=== PATIENT | male | born 1930 | race Caucasian/White ===

== ENCOUNTER 2017-04-14 12:41 | Inpatient (IN) | payer MEDICARE ==
[~2017-04-14] VITALS: Ht 188 cm; Wt 70.3 kg
--- NOTE | 2017-04-14 12:48 | ER Report ---
History and Physical Time Seen By MD: 12:48 HPI/ROS CHIEF COMPLAINT: Not feeling well HISTORY OF PRESENT ILLNESS: 86-year-old male patient presents to emergency room with complaint of not feeling well. Patient states he is not felt well for the past or 3 days. He states that he's not had any more shortness of breath than normal. He states that he was seen at the urgent care, they checked several labs and then referred him to the emergency room. They're concerned that he has had a cough and sore throat. They were concerned that he may be developing pneumonia. He states he is not had any fevers, chills, nausea, vomiting or diarrhea. He is not having changes in his medications. The labs that were done at the urgent care he did have an elevated d-dimer of 1.59, elevated B natruretic peptide of 611. Patient denies having any chest pain. REVIEW OF SYSTEMS: Respiratory: As noted above Cardiovascular: No chest pain, no palpitations. Gastrointestinal: No vomiting, no abdominal pain. Musculoskeletal: No back pain. Allergies: Coded Allergies: No Known Drug Allergies (Unverified , 04/14/17) Home Meds Reported Medications Amiodarone Hcl (AMIODARONE HCL) 200 Mg Tablet, 200 MG PO QHS 04/14/17 Apixaban (ELIQUIS) 2.5 Mg Tablet, 2.5 MG PO BID 04/14/17 Past Medical/Surgical History Patient has a past medical history of irregular heartbeat, congestive heart failure, urinary frequency. Patient has surgical history of a clip for a leaky valve. Reviewed Nurses Notes: Yes Constitutional Vital Sign - Last 24 Hours 04/14/17 04/14/17 04/14/17 04/14/17 12:41 12:47 12:49 12:56 Temp 97.8 Pulse ??? 116 107 Resp 20 B/P (MAP) 109/79 109/79 (89) Pulse Ox 95 96 O2 Delivery Room Air 04/14/17 04/14/17 04/14/17 04/14/17 13:00 13:11 13:26 13:30 Pulse 101 104 B/P (MAP) 109/76 (87) 78/44 (55) Pulse Ox 95 88 04/14/17 04/14/17 04/14/17 04/14/17 13:38 13:41 13:58 14:00 Pulse 95 88 B/P (MAP) 94/70 (78) 94/68 (77) Pulse Ox 94 95 04/14/17 04/14/17 04/14/17 04/14/17 14:05 14:10 14:15 14:20 Pulse 84 83 83 81 Resp 82 22 11 Pulse Ox 96 95 96 04/14/17 04/14/17 04/14/17 04/14/17 14:25 14:30 14:35 14:45 Pulse 67 74 66 Resp 54 25 0 B/P (MAP) 125/70 (88) Pulse Ox 96 96 97 04/14/17 04/14/17 04/14/17 04/14/17 14:55 15:00 15:15 15:30 Pulse 62 62 66 Resp 54 0 22 B/P (MAP) 111/69 (83) 119/75 (90) Pulse Ox 96 97 96 04/14/17 04/14/17 04/14/17 04/14/17 15:45 16:00 16:15 16:30 Pulse 62 64 71 Resp 17 14 55 B/P (MAP) 114/76 (89) 108/78 (88) Pulse Ox 97 96 95 04/14/17 04/14/17 04/14/17 04/14/17 16:45 16:50 17:00 17:05 Pulse 68 74 67 Resp 38 17 12 B/P (MAP) 123/90 (101) Pulse Ox 96 96 96 04/14/17 04/14/17 04/14/17 04/14/17 17:20 17:30 17:35 17:50 Pulse 64 62 64 Resp 24 46 27 B/P (MAP) 125/79 (94) Pulse Ox 96 96 95 04/14/17 18:00 B/P (MAP) 127/90 (102) Intake and Output 04/14/17 04/14/17 04/15/17 15:00 23:00 07:00 Intake Total 500 ml Balance 500 ml Physical Exam General Appearance: The patient is alert, has no immediate need for airway protection and no current signs of toxicity. Respiratory: Chest is non tender, lungs are clear to auscultation. Cardiac: regular rate and rhythm Gastrointestinal: Abdomen is soft and non tender, no masses, bowel sounds normal. Musculoskeletal: Neck: Neck is supple and non tender. Extremities have full range of motion and are non tender. Skin: No rashes or lesions. DIFFERENTIAL DIAGNOSIS: After history and physical exam differential diagnosis was considered for pulmonary embolism, NSTEMI, urinary tract infection, and influenza. Medical Decision Making Data Points Laboratory Hematology Test 04/14/17 13:07 04/14/17 13:17 04/14/17 14:34 Influenza Virus Type A (PCR) Positive (NEGATIVE) Influenza Virus Type B (PCR) Negative (NEGATIVE) Urine Color [place] Urine Clarity Cloudy Urine pH 5.0 pH (4.8-9.5) Urine Specific [place] 1.020 Urine Protein 30 mg/dL (NEGATIVE) Urine Glucose (UA) Negative mg/dL (NEGATIVE) Urine Ketones Trace mg/dL (NEGATIVE) Urine Blood Negative (NEGATIVE) Urine Nitrite Negative (NEGATIVE) Urine Bilirubin Negative (NEGATIVE) Urine Urobilinogen 2.0 mg/dL (0.2-1.9) Urine Leukocyte Esterase Negative (NEGATIVE) Urine RBC 1 /HPF (0-2/HPF) Urine WBC 7 /HPF (0-5/HPF) Urine Squamous Epithelial Cells Many /LPF (</=FEW) Urine Bacteria Few /HPF (NONE-FEW) Urine Hyaline Casts Many /LPF (NONE-FEW) Urine Mucus Few /HPF (NONE-FEW) Troponin I 0.047 ng/ml Chemistry Test 04/14/17 13:07 04/14/17 13:17 04/14/17 14:34 Influenza Virus Type A (PCR) Positive (NEGATIVE) Influenza Virus Type B (PCR) Negative (NEGATIVE) Urine Color S[place] Urine Clarity Cloudy Urine pH 5.0 pH (4.8-9.5) Urine Specific [place] 1.020 Urine Protein 30 mg/dL (NEGATIVE) Urine Glucose (UA) Negative mg/dL (NEGATIVE) Urine Ketones Trace mg/dL (NEGATIVE) Urine Blood Negative (NEGATIVE) Urine Nitrite Negative (NEGATIVE) Urine Bilirubin Negative (NEGATIVE) Urine Urobilinogen 2.0 mg/dL (0.2-1.9) Urine Leukocyte Esterase Negative (NEGATIVE) Urine RBC 1 /HPF (0-2/HPF) Urine WBC 7 /HPF (0-5/HPF) Urine Squamous Epithelial Cells Many /LPF (</=FEW) Urine Bacteria Few /HPF (NONE-FEW) Urine Hyaline Casts Many /LPF (NONE-FEW) Urine Mucus Few /HPF (NONE-FEW) Troponin I 0.047 ng/ml Urinalysis Test 04/14/17 13:17 Urine Color Sury Urine Clarity Cloudy Urine pH 5.0 pH (4.8-9.5) Urine Specific [place] 1.020 Urine Protein 30 mg/dL (NEGATIVE) Urine Glucose (UA) Negative mg/dL (NEGATIVE) Urine Ketones Trace mg/dL (NEGATIVE) Urine Blood Negative (NEGATIVE) Urine Nitrite Negative (NEGATIVE) Urine Bilirubin Negative (NEGATIVE) Urine Urobilinogen 2.0 mg/dL (0.2-1.9) Urine Leukocyte Esterase Negative (NEGATIVE) Urine RBC 1 /HPF (0-2/HPF) Urine WBC 7 /HPF (0-5/HPF) Urine Squamous Epithelial Cells Many /LPF (</=FEW) Urine Bacteria Few /HPF (NONE-FEW) Urine Hyaline Casts Many /LPF (NONE-FEW) Urine Mucus Few /HPF (NONE-FEW) EKG/Imaging EKG Interpretation 12 lead EKG: Rhythm: Atrial fibrillation with rapid ventricular response, ventricular rate of 107 bpm [place]: Right superior axis deviation QRS: Incomplete right bundle branch block ST segments: Nonspecific ST abnormality Imaging Bilateral lower extremity duplex venous ultrasound Indication: Positive pulmonary embolism. Comparison: None Available Findings: Duplex Doppler and color flow imaging was performed. The right common femoral, bilateral femoral, and popliteal veins are all patent and compressible with normal Doppler wave forms. There are normal responses to augmentation. There is short segment of intraluminal thrombus in the proximal left common femoral vein which is nonocclusive. The remaining, femoral vein is patent. The bilateral posterior tibial and peroneal veins are clear. The proximal greater saphenous veins are also normal. Subcutaneous tissues are unremarkable. Impression: 1. Short segment of positive nonoccluding thrombus seen in the left common femoral vein. I called report to ALESSANDRA MALLORY at 04/14/2017 4:51 PM. Report Dictated By: Leonidas Gleason at 04/14/2017 4:44 PM Report E-Signed By: Leonidas Gleason at 04/14/2017 4:51 PM CTA CHEST WW/O CNTR (PULM ANG) HISTORY: Elevated d-dimer ADDITIONAL HISTORY: None. TECHNIQUE: CTA chest with intravenous contrast. Axial imaging acquired following administration of IV contrast timed for maximum opacification of the pulmonary arterial vasculature. Slab 3-D MIP reconstructed images were also created for further evaluation and interpretation. Reconstruction of the source data set includes multiplanar 2-D in the sagittal and coronal planes and 3-D reconstructed coronal slab MIP series. 3-D images were created by the technologist. CONTRAST: 75 mL Isovue-370 COMPARISON: None. FINDINGS: Lungs/pleura: There is subtle groundglass opacities seen in the upper lobes bilaterally. Peripheral reticular nodular changes are seen in both lower lobes. There is a small peripheral stellate region in the inferolateral lingula likely representing scar or atelectasis Heart/vessels: There is intraluminal thrombus filling the segmental and subsegmental arterial branches in the left lower lobe. There is mild aneurysmal dilatation of the ascending thoracic aorta measuring 4.1 cm in length. The pulmonary trunk is mildly dilated at 3.3 cm Mediastinum/lymph nodes: Negative. Visualized upper abdomen: Extensive vascular calcifications in the splenic artery. Small hiatal hernia Bones/soft tissues: Postsurgical changes of the right shoulder. Mild to moderate spondylotic changes of the thoracic spine. Additional findings: None IMPRESSION: There is intraluminal thrombus in the segmental and subsegmental arterial branches in the left lower lobe. Mild aneurysmal dilatation of the ascending thoracic aorta The main pulmonary trunk is mildly dilated at 3.3 cm which can be seen with my arterial hypertension Subtle groundglass opacities are seen in the upper lobes bilaterally with peripheral reticular nodular changes in both lower lobes. These changes could be chronic although an acute infectious/inflammatory process not excluded Results were called to ALESSANDRA MALLORY at 04/14/2017 2:24 PM. Report Dictated By: Viji Teague MD at 04/14/2017 2:14 PM Report E-Signed By: Viji Teague MD at 04/14/2017 2:26 PM ED Course/Re-evaluation ED Course Patient was admitted to exam room, history and physical were obtained. Differential diagnoses were considered. Patient had an elevated d-dimer from the urgent care and so I felt that we needed to get a CT pulmonary angiogram, but on listening to his history I felt that patient likely had influenza. A urinalysis and influenza screen were done. Patient was positive for influenza A. Patient had a GFR of 38.3. I discussed doing a contrast CT with Dr. Llanes , radiologist who felt that the patient will probably be able to tolerate that well. The CT pulmonary angiogram was done which was positive for segmental and subsegmental pulmonary emboli in the left lower lobe. I discussed the case with Dr. Gustafson, hospitalist, who felt that these could very well be chronic and recommended doing ultrasound of bilateral legs. Patient did in fact have a DVT in the left common femoral vein. I discussed this with Dr. Gustafson who felt the patient should be transferred to get a IVC filter. I discussed the case with hospitalist at [facility]. She felt that they would not do an IVC filter, however she would bridge the patient with Lovenox and switch to a different anticoagulant likely Coumadin. I then spoke with Dr. Hilario, interventional radiologist, who felt that I should talk to pulmonology as he does not do those. I did speak with the photonic laboratory technician at [facility] who stated that she would not put in a IVC filter but would bridge the patient with heparin and change him to Coumadin and have the patient follow-up with hematology. Since there was no treatment that was going to be greater than what could be done here at [facility] and I did speak again with Dr. Gustafson and ran through my conversations with the specialist. He did ultimately agree to accept the patient for admission. I discussed this with the patient and his daughter who verbalized understanding and agreement with plan. Decision to Disposition Date: Apr 14, 2017 Decision to Disposition Time: 19:09 Depart Departure Latest Vital Signs Vital Signs Date Time Temp Pulse Resp B/P (MAP) Pulse Ox O2 Delivery O2 Flow Rate FiO2 04/14/17 18:00 127/90 (102) 04/14/17 17:50 64 27 95 04/14/17 12:47 97.8 Room Air Impression: Primary Impression: Influenza A Additional Impressions: Pulmonary emboli DVT (deep venous thrombosis) Condition: Condition Unchanged Disposition: Admitted from ER Referrals: WILLIAM FAYE DO (PCP) Problem Qualifiers Additional Impressions: Pulmonary emboli Pulmonary embolism type: other Chronicity: acute Acute cor pulmonale presence: without acute cor pulmonale Qualified Codes: I26.99 - Other pulmonary embolism without acute cor pulmonale DVT (deep venous thrombosis) DVT location: lower extremity Affected thrombotic vein of extremity: femoral Chronicity: acute Laterality: left Qualified Codes: I82.412 - Acute embolism and thrombosis of left femoral vein ALESSANDRA MALLORY Apr 14, 2017 12:48
--- NOTE | 2017-04-14 12:59 | EKG ---
FACILITY: [facility] PATIENT NAME: KELSEY STAHL : [id number] MR: [id number] V: [id number] EXAM DATE: ORDERING PHYSICIAN: ALESSANDRA MALLORY TECHNOLOGIST: DINAH Ornelas Reason : CARDIAC Blood Pressure : / mmHG Vent. Rate : 107 BPM Atrial Rate : 120 BPM P-R Int : 000 ms QRS Dur : 102 ms QT Int : 356 ms P-R-T Axes : 000 263 042 degrees QTc Int : 475 ms Atrial fibrillation with rapid ventricular response Incomplete right bundle branch block Nonspecific ST abnormality Abnormal ECG No previous ECGs available Confirmed by GARRETT WORTHY ([id number]) on 04/15/2017 5:20:00 AM Referred By: ALESSANDRA Confirmed By:GARRETT WORTHY
[2017-04-14] MEDS ORDERED: AMIO200T47 PO (13:03)
[2017-04-14] MEDS ORDERED: APIX2.5T PO (13:03)
[2017-04-14] MEDS ORDERED: IOPAMIDOL 76% 75 ML INFUS BTL 75 ML ONE (13:26)
[2017-04-14] MEDS ORDERED: NS 0.9% 50 ML VIAL 100 ML ONE (13:26)
[2017-04-14] MEDS ORDERED: NS(*) 0.9% 500 ML BAG 500 ML IV ONE (13:40)
--- NOTE | 2017-04-14 14:31 | RADIOLOGY IMAGING REPORT ---
FACILITY: [facility] [place] PATIENT NAME: Thomas Juarez : 1930 MR: [id number] V: [id number] EXAM DATE: ORDERING PHYSICIAN: ALESSANDRA MALLORY TECHNOLOGIST: Location: [facility] [place] Patient: Thomas Juarez : 1930 Visit/Account:[id number] Date of Sevice: 04/14/2017 ADDENDUM #1 Dose Lowering Technique One of the following dose optimization techniques was utilized in the performance of this exam: Autom ated exposure control; adjustment of the mA and/or kV according to the patient's size; or use of an i terative reconstruction technique. Specific details can be referenced in the facility's radiology C T exam operational policy. Report Dictated By: Viji Teague MD at 04/20/2017 9:12 AM Report E-Signed By: Viji Teague MD at 04/20/2017 9:12 AM ORIGINAL REPORT CTA CHEST WW/O CNTR (PULM ANG) HISTORY: Elevated d-dimer ADDITIONAL HISTORY: None. TECHNIQUE: CTA chest with intravenous contrast. Axial imaging acquired following administration of IV contrast timed for maximum opacification of the pulmonary arterial vasculature. Slab 3-D MIP nickolas nstructed images were also created for further evaluation and interpretation. Reconstruction of the [facility] data set includes multiplanar 2-D in the sagittal and coronal planes and 3-D reconstructed shantanu nal slab MIP series. 3-D images were created by the technologist. CONTRAST: 75 mL Isovue-370 COMPARISON: None. FINDINGS: Lungs/pleura: There is subtle groundglass opacities seen in the upper lobes bilaterally. Peripheral reticular nodular changes are seen in both lower lobes. There is a small peripheral stellate region in the inferolateral lingula likely representing scar or atelectasis Heart/vessels: There is intraluminal thrombus filling the segmental and subsegmental arterial branch es in the left lower lobe. There is mild aneurysmal dilatation of the ascending thoracic aorta measu ring 4.1 cm in length. The pulmonary trunk is mildly dilated at 3.3 cm Mediastinum/lymph nodes: Negative. Visualized upper abdomen: Extensive vascular calcifications in the splenic artery. Small hiatal her juve Bones/soft tissues: Postsurgical changes of the right shoulder. Mild to moderate spondylotic change s of the thoracic spine. Additional findings: None IMPRESSION: There is intraluminal thrombus in the segmental and subsegmental arterial branches in the left lower lobe. Mild aneurysmal dilatation of the ascending thoracic aorta The main pulmonary trunk is mildly dilated at 3.3 cm which can be seen with my arterial hypertension Subtle groundglass opacities are seen in the upper lobes bilaterally with peripheral reticular nodula r changes in both lower lobes. These changes could be chronic although an acute infectious/inflammat ory process not excluded Results were called to ALESSANDRA MALLORY at 04/14/2017 2:24 PM. Report Dictated By: Viji Teague MD at 04/14/2017 2:14 PM Report E-Signed By: Viji Teague MD at 04/14/2017 2:26 PM WSN:[id number]
--- NOTE | 2017-04-14 16:55 | RADIOLOGY IMAGING REPORT ---
FACILITY: [facility] [place] PATIENT NAME: Thomas Juarez : 1930 MR: [id number] V: [id number] EXAM DATE: ORDERING PHYSICIAN: ALESSANDRA MALLORY TECHNOLOGIST: [place] [facility] [place] Thomas Juarez : 1930 Visit/Account:[id number] Date of Sevice: 04/14/2017 Bilateral lower extremity duplex venous ultrasound Indication: Positive pulmonary embolism. Comparison: None Available Findings: Duplex Doppler and color flow imaging was performed. The right common femoral, bilateral f emoral, and popliteal veins are all patent and compressible with normal Doppler wave forms. There ar e normal responses to augmentation. There is short segment of intraluminal thrombus in the proximal left common femoral vein which is nonocclusive. The remaining, femoral vein is patent. The bilateral posterior tibial and peroneal veins are clear. The proximal greater saphenous veins are also normal. Subcutaneous tissues are unremarkable. Impression: 1. Short segment of positive nonoccluding thrombus seen in the left common femoral vein. I called report to ALESSANDRA MALLORY at 04/14/2017 4:51 PM. Report Dictated By: Leonidas Gleason at 04/14/2017 4:44 PM Report E-Signed By: Leonidas Gleason at 04/14/2017 4:51 PM WSN:[id number]
[2017-04-14 18:45] VITALS: BP 158/95
[2017-04-14] MEDS ORDERED: NS(*) 0.9% 1000 ML BAG 1,000 ML IV PRN (19:22)
[2017-04-14] MEDS ORDERED: ACETAMINOPHEN 325 MG TAB PO PRN (19:25)
--- NOTE | 2017-04-14 19:43 | History & Physical ---
History of Present Illness Chief Complaint Weak History of Present Illness 86yo male with PMHx significant for chronic a-fib, previous mitral valve MitraClip repair. He reports onset of feeling congested with some non- productive cough, achy, possible low grade fever, and weak over past 4-5 days. Prior to this he states he has felt generally a little weaker, somewhat off balance at times, as well as some dyspnea and decreased stamina since his mitral valve repair approximately 18 months ago. He is currently on Eliquis and amiodarone for his atrial fibrillation. He did have an episode of hip discomfort in the past few weeks. He also had some mild swelling of both feet and ankles. He was evaluated at the Urgent Care and [facility] ER and found to have influenza A and also left common femoral DVT with left lower lobe pulmonary emboli. He states he may have missed a dose or two of his Eliquis approximately two months ago, but none recently. He was recommended for admission. History Problems: (1) Chronic atrial fibrillation Status: Chronic (2) History of mitral valve repair (3) Cancer of skin of right leg Home Meds Reported Medications Amiodarone Hcl (AMIODARONE HCL) 200 Mg Tablet, 200 MG PO QHS 04/14/17 Apixaban (ELIQUIS) 2.5 Mg Tablet, 2.5 MG PO BID 04/14/17 Allergies: Coded Allergies: No Known Drug Allergies (Unverified , 04/14/17) Patient History: Uterine cancer MOTHER Other Social/Family Hx . Retired professor in psychology. Hx Smoking: Yes Smoking Status: Former Smoker (smoked a pipe while in graduate school 60+ years ago) Hx Alcohol Use: Yes (very rare) Social Drug Use: Never Review of Systems Constitutional: Fever, No Chills, No Night Sweats Neurological: Weakness, Dizziness, No Syncope, No Confusion Eyes: No Vision Change, No Loss of Vision ENT: Sinus Congestion, No Hearing Loss Cardiovascular: No Chest Pain, No Palpitations Respiratory: Shortness of Breath, Cough, No Wheezing Gastrointestinal: No Nausea, No Vomiting, No Diarrhea, No Hematemesis, No Hematochezia, No Melena, No Abdominal Pain Genitourinary: No Dysuria, No Hematuria Musculoskeletal: Pain Psychiatric: No Depression, No Anxiety Exam Vital Signs Vital Signs Date Time Temp Pulse Resp B/P (MAP) Pulse Ox O2 Delivery O2 Flow Rate FiO2 04/14/17 18:45 97.9 89 14 158/95 (116) 94 Room Air General Appearance: Alert, Awake Neuro: No Gross deficits Eyes: PERRLA ENT: Oropharynx Clear Neck: No Masses Cardiovascular: Other (Irregular with soft systolic murmur) Respiratory: Clear to Auscultation Chest: No Masses, No Tenderness GI: Abd Soft and Non-Tender : No CVA Tenderness Lymph: No Adenopathy Extremities: Warm, Perfused, Other (no edema at present/negative Timothy's sign bilaterally) Integumentary: Other (old scar right anterior tibial area with some chronic bronze discoloration) Psych: Alert & Oriented X3 Medical Decision Making Data Points Item Value Date Time White Blood Count 8.0 k/uL 04/14/17 1109 Hemoglobin 16.0 g/dL 04/14/17 1109 Hematocrit 46.8 % 04/14/17 1109 Platelet Count 120 K/uL L 04/14/17 1109 Sodium Level 131 mmol/L L 04/14/17 1109 Potassium Level 4.2 mmol/L 04/14/17 1109 Chloride Level 97 mmol/L L 04/14/17 1109 Carbon Dioxide Level 23 mmol/L 04/14/17 1109 Blood Urea Nitrogen 27 mg/dl H 04/14/17 1109 Creatinine 1.70 mg/dl H 04/14/17 1109 Glomerular Filtration Rate Calc 38.3 04/14/17 1109 Random Glucose 95 mg/dl 04/14/17 1109 Calcium Level 8.6 mg/dl 04/14/17 1109 Total Bilirubin 1.4 mg/dl H 04/14/17 1109 Aspartate Amino Transf (AST/SGOT) 47 U/L H 04/14/17 1109 Alanine Aminotransferase (ALT/SGPT) 63 U/L H 04/14/17 1109 Alkaline Phosphatase 70 U/L 04/14/17 1109 Troponin I 0.059 ng/ml 04/14/17 1109 Total Protein 6.7 gm/dl 04/14/17 1109 Albumin 3.8 g/dl 04/14/17 1109 B-Type Natriuretic Peptide 611 pg/ml H 04/14/17 1109 Troponin I 0.047 ng/ml 04/14/17 1434 D-Dimer Quantitative (PE/DVT) 1.59 ug/ml H 04/14/17 1109 Urine Color Sury 04/14/17 1317 Urine Clarity Cloudy 04/14/17 1317 Urine pH 5.0 pH 04/14/17 1317 Urine Specific Stuart 1.020 04/14/17 1317 Urine Protein 30 mg/dL 04/14/17 1317 Urine Glucose (UA) Negative mg/dL 04/14/17 1317 Urine Ketones Trace mg/dL 04/14/17 1317 Urine Blood Negative 04/14/17 1317 Urine Bilirubin Negative 04/14/17 1317 Urine Nitrite Negative 04/14/17 1317 Urine Urobilinogen 2.0 mg/dL 04/14/17 1317 Urine Leukocyte Esterase Negative 04/14/17 1317 Urine RBC 1 /HPF 04/14/17 1317 Urine WBC 7 /HPF 04/14/17 1317 Urine Squamous Epithelial Cells Many /LPF H 04/14/17 1317 Urine Bacteria Few /HPF 04/14/17 1317 Urine Hyaline Casts Many /LPF H 04/14/17 1317 Urine Mucus Few /HPF 04/14/17 1317 Influenza Virus Type A (PCR) Positive 04/14/17 1307 Influenza Virus Type B (PCR) Negative 04/14/17 1307 EKG / Imaging Imaging PATIENT NAME: Thomas Juarez : 1930 MR: [id number] V: [id number] EXAM DATE: ORDERING PHYSICIAN: ALESSANDRA MALLORY TECHNOLOGIST: Location: [facility] Patient: Thomas Juarez : 1930 Visit/Account:[id number] Date of Sevice: 04/14/2017 CTA CHEST WW/O CNTR (PULM ANG) HISTORY: Elevated d-dimer ADDITIONAL HISTORY: None. TECHNIQUE: CTA chest with intravenous contrast. Axial imaging acquired following administration of IV contrast timed for maximum opacification of the pulmonary arterial vasculature. Slab 3-D MIP reconstructed images were also created for further evaluation and interpretation. Reconstruction of the source data set includes multiplanar 2-D in the sagittal and coronal planes and 3-D reconstructed coronal slab MIP series. 3-D images were created by the technologist. CONTRAST: 75 mL [id number] COMPARISON: None. FINDINGS: Lungs/pleura: There is subtle groundglass opacities seen in the upper lobes bilaterally. Peripheral reticular nodular changes are seen in both lower lobes. There is a small peripheral stellate region in the inferolateral lingula likely representing scar or atelectasis Heart/vessels: There is intraluminal thrombus filling the segmental and subsegmental arterial branches in the left lower lobe. There is mild aneurysmal dilatation of the ascending thoracic aorta measuring 4.1 cm in length. The pulmonary trunk is mildly dilated at 3.3 cm Mediastinum/lymph nodes: Negative. Visualized upper abdomen: Extensive vascular calcifications in the splenic artery. Small hiatal hernia Bones/soft tissues: Postsurgical changes of the right shoulder. Mild to moderate spondylotic changes of the thoracic spine. Additional findings: None IMPRESSION: There is intraluminal thrombus in the segmental and subsegmental arterial branches in the left lower lobe. Mild aneurysmal dilatation of the ascending thoracic aorta The main pulmonary trunk is mildly dilated at 3.3 cm which can be seen with my arterial hypertension Subtle groundglass opacities are seen in the upper lobes bilaterally with peripheral reticular nodular changes in both lower lobes. These changes could be chronic although an acute infectious/inflammatory process not excluded Results were called to ALESSANDRA MALLORY at 04/14/2017 2:24 PM. Report Dictated By: Viji Teague MD at 04/14/2017 2:14 PM Report E-Signed By: Viji Teague MD at 04/14/2017 2:26 PM WSN:[id number] PATIENT NAME: Thomas Juarez : 1930 MR: [id number] V: [id number] EXAM DATE: ORDERING PHYSICIAN: ALESSANDRA MALLORY TECHNOLOGIST: Location: [facility] Patient: Thomas Juarez : 1930 Visit/Account:[id number] Date of Sevice: 04/14/2017 Bilateral lower extremity duplex venous ultrasound Indication: Positive pulmonary embolism. Comparison: None Available Findings: Duplex Doppler and color flow imaging was performed. The right common femoral, bilateral femoral, and popliteal veins are all patent and compressible with normal Doppler wave forms. There are normal responses to augmentation. There is short segment of intraluminal thrombus in the proximal left common femoral vein which is nonocclusive. The remaining, femoral vein is patent. The bilateral posterior tibial and peroneal veins are clear. The proximal greater saphenous veins are also normal. Subcutaneous tissues are unremarkable. Impression: 1. Short segment of positive nonoccluding thrombus seen in the left common femoral vein. I called report to ALESSANDRA MALLORY at 04/14/2017 4:51 PM. Report Dictated By: Leonidas Gleason at 04/14/2017 4:44 PM Report E-Signed By: Leonidas Gleason at 04/14/2017 4:51 PM WSN:[id number] Assessment and Plan Problems: (1) Pulmonary emboli Status: Acute Assessment & Plan: It is unknown when the PE may have occurred, but it does appear to have originated in his left lower extremity while on Eliquis. It does appear he "failed" Eliquis therapy. He is on reduced dose Eliquis presumably due to age and slight elevation of his creatinine. The ER did discuss Mr. Juarez's case with Pulmonology, who felt he did not warrant intervention such as IVC filter placement. It was recommended he be transitioned to oral warfarin with heparin bridging. He does appear to be stable and has minimal oxygen requirement. Will start Lovenox 70mg SQ q12hrs and initiate warfarin therapy. His last Eliquis dose was this AM at approximately 0700. Will monitor protime/ INR. He may need to see Hematology. (2) Influenza A Status: Acute Assessment & Plan: It appears he is beyond the first 48-72 hours of his illness. Clinically, he appears to be doing fairly well from this standpoint. Will give gentle IV fluids and acetaminophen. Watch. (3) Chronic atrial fibrillation Status: Chronic Assessment & Plan: He appears to have fairly good rate control. He will be placed on telemetry. Continue amiodarone. He will be transitioned to warfarin therapy as noted above. Copies to: WILLIAM FAYE DO Venous Thromboembolism Antithrombotics Is Pt On Any Antithrombotics?: Yes Exam Sepsis Risk: No Definite Risk Problem Qualifiers (1) Pulmonary emboli: Pulmonary embolism type: other Chronicity: acute Acute cor pulmonale presence: without acute cor pulmonale Qualified Codes: I26.99 - Other pulmonary embolism without acute cor pulmonale GARRETT WORTHY MD Apr 14, 2017 19:43
[2017-04-14] MEDS: ENOXAPARIN 100 MG/ML SYR SC SCH ×2 (19:56→21:00)
[2017-04-14] MEDS ORDERED: WARFARIN SOD 7.5 MG TAB PO ONE (20:30)
[2017-04-14] MEDS ORDERED: AMIODARONE 200 MG TAB PO SCH (21:00)
[2017-04-14 21:14] VITALS: BP 139/90
[2017-04-14 22:29] VITALS: BP 143/90
[2017-04-15 02:09] VITALS: BP 143/99
[2017-04-15 05:55] LABS: PLATELET COUNT, AUTOMATED 112 K/uL (150-450)
[2017-04-15 05:59] LABS: INR 1.18
--- NOTE | 2017-04-15 06:14 | EKG ---
FACILITY: [facility] PATIENT NAME: KELSEY STAHL : [id number] MR: [id number] V: [id number] EXAM DATE: ORDERING PHYSICIAN: GARRETT WORTHY TECHNOLOGIST: ELVIS Test Reason : AM EKG Blood Pressure : / mmHG Vent. Rate : 078 BPM Atrial Rate : 100 BPM P-R Int : 000 ms QRS Dur : 100 ms QT Int : 444 ms P-R-T Axes : 000 -72 014 degrees QTc Int : 506 ms Atrial fibrillation Left anterior fascicular block Prolonged QT Abnormal ECG Confirmed by HUGO GARZON ([id number]) on 04/15/2017 10:02:06 AM Referred By: Confirmed By:HUGO GARZON
[2017-04-15 07:49] VITALS: Ht 188 cm; Wt 70.3 kg
[2017-04-15] MEDS ORDERED: ENOX80DI8 SQ (08:41)
[2017-04-15] MEDS ORDERED: WARF-1 PO (08:41)
--- NOTE | 2017-04-15 08:44 | Hospitalist Depart ---
Discharge Summary Reason for Hosp/Final Diag: (1) Pulmonary emboli Status: Acute Hospital Course & Plan: It is unknown when the PE may have occurred, but it does appear to have originated in his left lower extremity while on Eliquis. The ER did discuss Mr. Juarez's case with Pulmonology, who felt he did not warrant intervention such as IVC filter placement. It was recommended he be transitioned to oral warfarin with heparin bridging. He will discharge on Lovenox injection and warfarin. His INR was 1.18 on discharge. He will need to follow up with his primary care physician on Wednesday 04/19 for repeat INR testing. His goal INR is 2-3 and he will require lifelong treatment. (2) Influenza A Status: Acute Hospital Course & Plan: He is beyond the first 48-72 hours of his illness. (3) Chronic atrial fibrillation Status: Chronic Hospital Course & Plan: He is on chronic treatment with amiodarone. Departure Latest Vital Signs Vital Signs 04/15/17 04/15/17 02:09 04:32 Temp 97.3 Pulse 77 Resp 20 B/P (MAP) 143/99 (114) Pulse Ox 96 O2 Delivery Nasal Cannula O2 Flow Rate 1.0 Weight (Pounds): 155 Result Diagram: 04/15/17 0532 04/15/17 0532 Condition: Improved Discharge: Home, Self Care Discharge Instructions Home Meds Active Scripts Warfarin Sodium (COUMADIN) 5 Mg Tablet, 5 MG PO QDAY@13, #30 TAB Prov:HUGO GARZON DO 04/15/17 Enoxaparin Sodium (LOVENOX) 80 Mg/0.8 Ml Disp.syrin, 70 MG SQ Q12H, #8 SYR Prov:HUGO GARZON DO 04/15/17 Reported Medications Amiodarone Hcl (AMIODARONE HCL) 200 Mg Tablet, 200 MG PO QHS 04/14/17 Discontinued Reported Medications Apixaban (ELIQUIS) 2.5 Mg Tablet, 2.5 MG PO BID 04/14/17 Diet: Regular Activity: As Tolerated Copies to: WILLIAM FAYE DO Venous Thromboembolism Antithrombotics Is Pt On Any Antithrombotics?: Yes Problem Qualifiers (1) Pulmonary emboli: Pulmonary embolism type: other Chronicity: acute Acute cor pulmonale presence: without acute cor pulmonale Qualified Codes: I26.99 - Other pulmonary embolism without acute cor pulmonale HUGO GARZON DO Apr 15, 2017 08:44
[2017-04-15] MEDS: ENOXAPARIN 100 MG/ML SYR SC SCH (09:27)
[2017-04-15 09:37] VITALS: BP 130/96
[2017-04-15] MEDS ORDERED: WARFARIN SOD 5 MG TAB PO SCH (13:00)
== END 2017-04-15 10:17 | disposition home or self-care (01) | DRG 299 ==
LOC: ER 12:59 → MED 18:21
PROVIDERS: ADMIT Internal Medicine; ATTEND Internal Medicine
DX: I82.412 Acute embolism and thrombosis of left femoral vein (principal); I26.99 Other pulmonary embolism without acute cor pulmonale; J10.1 Influenza due to other identified influenza virus with other respiratory manifestations; I48.2 Chronic atrial fibrillation; I50.9 Heart failure, unspecified; R35.0 Frequency of micturition; Z79.01 Long term (current) use of anticoagulants; Z85.828 Personal history of other malignant neoplasm of skin; Z87.891 Personal history of nicotine dependence
CPT/HCPCS: 36415; 71275; 81001; 82040; 82247; 82310; 82374; 82435; 82565; 82947; 83880; 84075; 84132; 84155; 84295; 84450; 84460; 84484; 84520; 85025; 85379; 85610; 87088; 87502; 93005; 93970; 96360; 99285; J1650; J7030; J7040; J7050; Q9967

== ENCOUNTER → 2017-04-14 | Outpatient (REF) | payer MEDICARE ==
[~2017-04-14] MED LIST: AMIO200T47 PO; APIX2.5T PO; ENOX80DI8 SQ; WARF-1 PO
[2017-04-14 11:46] LABS: PLATELET COUNT, AUTOMATED 120 K/uL (150-450)
== END ==
PROVIDERS: ATTEND Nurse Practitioner Family
DX: R53.83 Other fatigue (principal); R05 Cough; R03.1 Nonspecific low blood-pressure reading; R06.02 Shortness of breath
CPT/HCPCS: 82040; 82247; 82310; 82374; 82435; 82565; 82947; 83880; 84075; 84132; 84155; 84295; 84450; 84460; 84484; 84520; 85025; 85379

== ENCOUNTER 2017-12-01 06:57 | Outpatient (RCR) | payer MEDICARE ==
[2017-04-15 07:49] VITALS: BMI 19.9
[~2017-12-01 06:57] MED LIST changes: -AMIO200T47 PO; +AMIO200T49 PO
[2017-12-01 10:27] LABS: PLATELET COUNT, AUTOMATED 156 K/uL (150-450)
--- NOTE | 2017-12-03 10:51 | RADIOLOGY IMAGING REPORT ---
[place] [facility] [place] NAME: Thomas Juarez : 1930 MR: [id number] V: [id number] EXAM DATE: ORDERING PHYSICIAN: RENE ESPARZA TECHNOLOGIST: Location: [facility] Patient: Thomas Juarez : 1930 Visit/Account:[id number] Date of Sevice: 12/02/2017 US RENAL-RETROPERITONEAL COMP EXAMINATION: Renal ultrasound. History: Chronic kidney disease stage III COMPARISON STUDIES: None FINDINGS: Kidneys: Right kidney- 10.1 x 5 x 4.9 cm cm Left kidney- 10 point 4 x 4 0.5 x 5.2 cm cm Uniform and symmetric blood flow in each kidney by Doppler ultrasound. Hydronephrosis: none Resistive index on the right 0.68 on the left 0.67 Both kidneys are slightly lobular in contour There is an isoechoic area in the mid left kidney extending medially towards the hilum which may repr esent a prominent column of [place] seen Bladder: Prevoid volume 474 mL. Post void residual 68 mL. Bilateral ureteral jets are present Abdominal aorta and IVC: Aorta and IVC are patent by Doppler ultrasound. IMPRESSION: Mildly lobular contour to both kidneys Possible prominent column of [place] seen incidentally noted in the mid left kidney Post void bladder residual 68 mL Report Dictated By: Viji Teague MD at 12/03/2017 10:45 AM Report E-Signed By: Viji Teague MD at 12/03/2017 10:48 AM WSN:[id number]
== END 2017-12-02 18:00 | disposition home or self-care (01) ==
LOC: US 06:57 → EDSTATUS 12-02 06:56 → US 12-02 18:00
PROVIDERS: ATTEND Internal Medicine Nephrology
DX: Z13.9 Encounter for screening, unspecified (principal); N17.9 Acute kidney failure, unspecified; N18.3 Chronic kidney disease, stage 3 (moderate); R80.9 Proteinuria, unspecified; R42 Dizziness and giddiness; R06.00 Dyspnea, unspecified
CPT/HCPCS: 36415; 76705; 82040; 82310; 82374; 82435; 82550; 82565; 82570; 82784; 82947; 83883; 84100; 84132; 84156; 84165; 84295; 84443; 84520; 85025; 86334

== ENCOUNTER → 2018-02-07 | Outpatient (CLI) | payer MEDICARE ==
[2017-04-15 07:49] VITALS: BMI 19.9
[~2018-02-07] MED LIST changes: +DILT-106 PO; +MAGN400C PO; +MULT1TAB64 PO; +[UNRECOGNIZED DRUG - OTHER] PO
--- NOTE | 2018-02-07 11:01 | EKG ---
FACILITY: [facility] [place] PATIENT NAME: KELSEY STAHL : [id number] MR: [id number] V: [id number] EXAM DATE: ORDERING PHYSICIAN: HUGO HERRERA TECHNOLOGIST: [facility] Test Reason : PRE-OP CLEARANCE Blood Pressure : / mmHG Vent. Rate : 075 BPM Atrial Rate : 075 BPM P-R Int : 240 ms QRS Dur : 092 ms QT Int : 428 ms P-R-T Axes : 095 -67 -32 degrees QTc Int : 477 ms Sinus rhythm with 1st degree AV block Left axis deviation Nonspecific ST and T wave abnormality Abnormal ECG When compared with ECG of 15-APR-2017 05:55, Sinus rhythm has replaced Atrial fibrillation Nonspecific T wave abnormality, improved in Anterolateral leads Confirmed by RANJANA FORMAN ([id number]) on 02/07/2018 1:54:08 PM Referred By: JAVIER Confirmed By:RANJANA FORMAN
[2018-02-07 11:11] LABS: PLATELET COUNT, AUTOMATED 188 K/uL (150-450)
== END ==
LOC: LAB 10:41
PROVIDERS: ATTEND Surgery
DX: I44.0 Atrioventricular block, first degree (principal); R94.31 Abnormal electrocardiogram [ECG] [EKG]; I48.2 Chronic atrial fibrillation; Z95.0 Presence of cardiac pacemaker
CPT/HCPCS: 36415; 82310; 82374; 82435; 82565; 82947; 84132; 84295; 84520; 85025

== ENCOUNTER → 2018-03-28 | Outpatient (CLI) | payer MEDICARE ==
[2018-03-18 12:52] VITALS: BMI 22.9
[~2018-03-28] MED LIST changes: +WARF5TAB23 PO
[2018-03-28 08:36] LABS: INR 2.09
== END ==
LOC: LAB 08:11
PROVIDERS: ATTEND Internal Medicine
DX: Z51.81 Encounter for therapeutic drug level monitoring (principal); Z79.01 Long term (current) use of anticoagulants; I48.0 Paroxysmal atrial fibrillation; I26.99 Other pulmonary embolism without acute cor pulmonale; I82.409 Acute embolism and thrombosis of unspecified deep veins of unspecified lower extremity
CPT/HCPCS: 36415; 85610

== ENCOUNTER → 2018-03-31 | Outpatient (CLI) | payer MEDICARE ==
[2018-03-18 12:52] VITALS: BMI 22.9
== END ==
LOC: LAB 08:38
PROVIDERS: ATTEND Internal Medicine Nephrology
DX: N18.3 Chronic kidney disease, stage 3 (moderate) (principal); R80.9 Proteinuria, unspecified
CPT/HCPCS: 36415; 82040; 82310; 82374; 82435; 82565; 82947; 84100; 84132; 84295; 84520